=== PATIENT | female | born 1955 | race Caucasian/White ===

== ENCOUNTER → 2019-03-15 | Outpatient (CLI) | payer OTHER ==
[~2019-03-15] MED LIST: ASPI81CH PO; Depo-Estradio5 MG/ML; ESCI10 PO
[2019-03-19 15:07] LABS: HPV 16 Negative (Negative); HPV 18 Negative (Negative); HPV OTHER HR TYPES Negative (Negative)
== END ==
LOC: LAB SHORT 14:19 → LAB 14:19
PROVIDERS: Nurse Practitioner Women's Health
DX: Z12.72 Encounter for screening for malignant neoplasm of vagina (principal); Z91.89 Other specified personal risk factors, not elsewhere classified
CPT/HCPCS: 87624; G0123

== ENCOUNTER 2023-02-10 08:04 | Day surgery (SDC) | payer MEDICARE, OTHER ==
[~2023-02-10] VITALS: Ht 152.4 cm; Wt 53.0 kg
[2023-02-10] VITALS (14 sets, daily range): BP systolic 112–143; BP diastolic 78–97
[2023-02-10] MEDS ORDERED: ATOR20 PO (08:37)
[2023-02-10] MEDS ORDERED: AMLO10 PO (08:37)
[2023-02-10] MEDS ORDERED: CARV6.25 PO (08:37)
[2023-02-10] MEDS ORDERED: Vitamin D1000 UNI1 PO (08:38)
[2023-02-10] MEDS ORDERED: ALORA1 EA10 TOP (08:42)
[2023-02-10] MEDS ORDERED: Estrace Vagin42.5 GM VAG (08:43)
[2023-02-10] MEDS ORDERED: LINZESS145 MCG PO (08:44)
[2023-02-10] MEDS ORDERED: LISI20 PO (08:44)
[2023-02-10] MEDS ORDERED: NITR.4SL SL (08:45)
[2023-02-10] MEDS ORDERED: MELO7.5 PO (08:45)
[2023-02-10] MEDS ORDERED: PANT40 PO (08:45)
[2023-02-10] MEDS ORDERED: TRAM50 PO (08:47)
[2023-02-10] MEDS ORDERED: TESTOSTERONE60 GM TOP (08:47)
[2023-02-10] MEDS ORDERED: VENL150ER PO (08:47)
--- NOTE | 2023-02-10 10:15 | NUR ---
ASSUMED CARE OF PT POST PROCEDURE. PT DROWSY, BUT EASILY ROUSABLE, ANSWERING QUESTIONS APPROPRIATELY; DENIES CHEST PAIN POST PROCEDURE. MONITOR SB 50'S, B/P 128/91, SPO2 95% RA, AFEBRILE. R RADIAL SITE NO SWELLING/HEMATOMA, TR BAND IN PLACE; RUE POSITIVE PLEUTH POST TR BAND PLACEMENT.
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
--- NOTE | 2023-02-10 12:45 | NUR ---
REATTEMPTING TO DEFLATE TR BAND, 2 CC AIR REMOVED, NO BLEEDING AT SITE.
--- NOTE | 2023-02-10 12:50 | NUR ---
DR LOPEZ INTO REVIEW RESULTS OF PROCEDURE WITH PT AND .
[2023-02-10] MEDS ORDERED: FURO20 PO (13:22)
--- NOTE | 2023-02-10 13:50 | NUR ---
TR BAND FULLY DEFLATD, NO BLEEDING, SWELLING OR HEMATOMA.
--- NOTE | 2023-02-10 14:15 | NUR ---
R RADIAL SITE UNCHANGED POST TR BAND DEFLATION.
--- NOTE | 2023-02-10 14:50 | NUR ---
PT AMB TO BATHROOM, GAIT STEADY, SITE UNCHANGED WITH ACTIVITY. PT DRESSED SELF WITHOUT PROBELM, SITE UNCHANGED. TR BAND REMOVED, CLOTH DOT AND WRIST IMMOBILIZER PLACED; IV REMOVED-CANNULA INTACT.
--- NOTE | 2023-02-10 15:01 | NUR ---
PT AND SPOUSE RECEIVED DISCHARGE INSTRUCTIONS, MED LIST AND AFTER CARE INSTRUCTIONS; VERBALIZED GOOD UNDERSTANDING. PT LEFT FACILITY VIA W/C, CONDITION STABLE.
== END 2023-02-10 15:01 | disposition home or self-care (01) ==
LOC: MHTC 08:04
DX: I20.9 Angina pectoris, unspecified (principal); I36.1 Nonrheumatic tricuspid (valve) insufficiency; I10 Essential (primary) hypertension; K21.9 Gastro-esophageal reflux disease without esophagitis; F17.200 Nicotine dependence, unspecified, uncomplicated; Z79.82 Long term (current) use of aspirin; Z79.899 Other long term (current) drug therapy; Z88.5 Allergy status to narcotic agent
CPT/HCPCS: 76937; 93458; 99152; 99153; A9270; C1769; C1894; J1644; J2250; J3010; J7030; J7050; Q9967